=== PATIENT | female | born 1990 | race Caucasian/White ===

== ENCOUNTER 2018-10-05 14:15 | Emergency (ER) | payer BC ==
[2018-10-05] MEDS ORDERED: NA CHLORIDE 0.9% 1,000 ML ONE (15:08)
[2018-10-05 15:09] LABS: Absolute Lymphocytes (CBC) 1.1 K/uL (0.7-4.9); Absolute Monocytes 0.6 K/uL (0.1-1.3); Absolute Neutrophil 8.8 K/uL (1.8-8.0); Basophils % 0.3 % (0-1.3); Eosinophils % 0.3 % (0-4.4); Hematocrit 40.5 % (36.0-45.0); Lymphocytes % 10.6 % (15.3-44.8); MPV 7.5 fL (7.6-11.3); Monocytes % 5.4 % (3.3-12.3); RBC Red Blood Cell Count 4.45 M/uL (3.86-4.86)
[2018-10-05 15:13] LABS: Protime INR 1.13
--- NOTE | 2018-10-05 15:31 | RAD REPORT ---
EXAM DESCRIPTION: RAD - Chest Single View - 10/05/2018 3:20 pm CLINICAL HISTORY: MALAISE Chest pain. COMPARISON: No comparisons FINDINGS: Portable technique limits examination quality. The lungs are grossly clear. The heart is normal in size. No displaced fractures. IMPRESSION: No acute intrathoracic process suspected.
[2018-10-05 16:01] LABS: ALT/SGPT 16 U/L (12-78); AST/SGOT 14 U/L (15-37); Albumin 4.7 g/dL (3.4-5.0); Alkaline Phosphatase 47 U/L (45-117); BUN Blood Urea Nitrogen 11 mg/dL (7-18); Bicarbonate 23 mmol/L (21-32); Bilirubin Direct 0.2 mg/dL (0-0.2); Bilirubin Total 0.5 mg/dL (0.2-1.0); Glucose Level 117 mg/dL (74-106); Magnesium 1.7 mg/dL (1.8-2.4); NT PRO-BNP 10 pg/mL (<125); Potassium 3.5 mmol/L (3.5-5.1); Protein, Total 7.9 g/dL (6.4-8.2); Sodium Level 143 mmol/L (136-145); Troponin (Emerg Dept Use Only) < 0.02 ng/mL (0.0-0.045)
[2018-10-05 16:16] LABS: Barbiturates NEGATIVE (NEGATIVE); Benzodiazepines NEGATIVE (NEGATIVE); Cocaine NEGATIVE (NEGATIVE); METHAMPHETAM NEGATIVE (NEGATIVE); Methadone NEGATIVE (NEGATIVE); Opiates NEGATIVE (NEGATIVE); Phencyclidine NEGATIVE (NEGATIVE); THC Cannibis NEGATIVE (NEGATIVE)
--- NOTE | 2018-10-05 16:32 | EKG ---
Test Date: 2018-10-05 Test Time: 14:27:13 Batch Analyst: TITUS MEASUREMENT RESULTS: Intervals: Rate: 89 KS: 148 QRSD: 94 QT: 380 QTc: 462 [place]: P: 65 KS: 148 QRS: 75 T: 51 INTERPRETIVE STATEMENTS: Normal sinus rhythm with a premature ventricular complex Abmormal ECG No previous ECG available for comparison Electronically Signed On 10-05-18 16:31:04 CDT by Eugene Esteves
--- NOTE | 2018-10-05 16:55 | EDPHYS ---
Physician Documentation [facility] Name: Mnoique Robles Age: 28 yrs Sex: Female : 1990 Arrival Date: 10/05/2018 Time: 14:16 Bed 8 Private MD: ED Physician Irvin Price HPI: 10/05 16:45 This 28 yrs old Female presents to ER via Ambulatory with complaints of gs Anxiety. 16:45 The patient presents with a history of heart racing. Context: The symptoms occur at gs rest. Onset: The symptoms/episode began/occurred suddenly. Duration: The patient or guardian reports a single episode. Modifying factors: The symptoms are aggravated by nothing. The symptoms are alleviated by nothing. Associated signs and symptoms: Pertinent positives: SOB. Severity of symptoms: At their worst the symptoms were severe in the emergency department the symptoms are unchanged. The patient has experienced a previous episode. 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 - Social history:: Smoking status: Patient/guardian denies using tobacco. - Ebola Screening: : Patient negative for fever greater than or equal to 101.5 degrees Fahrenheit, and additional compatible Ebola Virus Disease symptoms Patient denies exposure to infectious person Patient denies travel to an Ebola-affected area in the 21 days before illness onset No symptoms or risks identified at this time. ROS: 16:45 All other systems are negative. gs Exam: 16:45 Head/Face: Normocephalic, atraumatic. Eyes: Pupils equal round and reactive to light, gs extra-ocular motions intact. Lids and lashes normal. Conjunctiva and sclera are non-icteric and not injected. Cornea within normal limits. Periorbital areas with no swelling, redness, or edema. ENT: Nares patent. No nasal discharge, no septal abnormalities noted. Tympanic membranes are normal and external auditory canals are clear. Oropharynx with no redness, swelling, or masses, exudates, or evidence of obstruction, uvula midline. Mucous membranes moist. Neck: Trachea midline, no thyromegaly or masses palpated, and no cervical lymphadenopathy. Supple, full range of motion without nuchal rigidity, or vertebral point tenderness. No Meningismus. Chest/axilla: Normal chest wall appearance and motion. Nontender with no deformity. No lesions are appreciated. Abdomen/GI: Soft, non-tender, with normal bowel sounds. No distension or tympany. No guarding or rebound. No evidence of tenderness throughout. Back: No spinal tenderness. No costovertebral tenderness. Full range of motion. Skin: Warm, dry with normal turgor. Normal color with no rashes, no lesions, and no evidence of cellulitis. MS/ Extremity: Pulses equal, no cyanosis. Neurovascular intact. Full, normal range of motion. Neuro: Awake and alert, GCS 15, oriented to person, place, time, and situation. Cranial nerves II-XII grossly intact. Motor strength 5/5 in all extremities. Sensory grossly intact. Cerebellar exam normal. Normal gait. 16:45 Constitutional: The patient appears alert, awake, uncomfortable. 16:45 Cardiovascular: Rate: tachycardic, Rhythm: regular, Pulses: no pulse deficits are appreciated. 16:45 ECG was reviewed by the Attending Physician. 16:45 Respiratory: mild respiratory distress is noted, Respirations: tachypnea, Breath sounds: are clear throughout. Vital Signs: 14:19 BP 144 / 90; Pulse 100; Resp 39 S; Temp 97.2; Pulse Ox 100% ; sg 15:18 BP 116 / 77; Pulse 81; Resp 18; Pulse Ox 100% on R/A; hj 16:54 BP 114 / 82; Pulse 83; Resp 18; Pulse Ox 100% on R/A; hj 17:08 BP 123 / 84; Pulse 82; Resp 18; Pulse Ox 100% on R/A; hj MDM: 14:40 Patient medically screened. gs 16:45 Differential diagnosis: arrythmia, dehydration, stress disorder. Differential gs diagnosis: HYPERTHYROID,DRUG EFFECT. Data reviewed: vital signs, nurses notes. Counseling: I had a detailed discussion with the patient and/or guardian regarding: the historical points, exam findings, and any diagnostic results supporting the discharge/admit diagnosis, lab results, the need for outpatient follow up. Response to treatment: the patient's symptoms have markedly improved after treatment, the patient's condition has returned to base line. 10/05 14:45 Order name: Basic Metabolic Panel 10/05 14:45 Order name: CBC with Diff 10/05 14:45 Order name: LFT's 10/05 14:45 Order name: Magnesium 10/05 14:45 Order name: NT PRO-BNP; Complete Time: 16:27 10/05 14:45 Order name: PT-INR; Complete Time: 15:34 10/05 14:45 Order name: Troponin (emerg Dept Use Only); Complete Time: 16:27 10/05 14:45 Order name: Urine Drug Screen; Complete Time: 16:27 10/05 14:45 Order name: Urine Microscopic Only 10/05 14:45 Order name: TSH; Complete Time: 16:27 10/05 14:45 Order name: D-Dimer; Complete Time: 15:34 10/05 14:45 Order name: Basic Metabolic Panel; Complete Time: 16:27 EDPA 10/05 14:45 Order name: CBC with Automated Diff; Complete Time: 15:34 EDPA 10/05 14:45 Order name: XRAY Chest (1 view); Complete Time: 15:34 10/05 14:45 Order name: EKG; Complete Time: 14:46 10/05 14:45 Order name: Cardiac monitoring; Complete Time: 14:46 10/05 14:45 Order name: EKG - Nurse/Tech; Complete Time: 14:46 10/05 14:45 Order name: IV Saline Lock; Complete Time: 14:57 10/05 14:45 Order name: Labs collected and sent; Complete Time: 14:57 10/05 14:45 Order name: O2 Per Protocol; Complete Time: 14:47 10/05 14:45 Order name: O2 Sat Monitoring; Complete Time: 14:47 10/05 14:45 Order name: Urine Test (obtain specimen); Complete Time: 15:50 10/05 14:45 Order name: Urine Dipstick-Ancillary (obtain specimen); Complete Time: 15:50 10/05 14:45 Order name: Liver (Hepatic) Function; Complete Time: 16:27 EDPA 10/05 14:45 Order name: Magnesium; Complete Time: 16:27 EDPA 10/05 15:58 Order name: Urine Dipstick--Ancillary (enter results) eb 10/05 15:58 Order name: Urine --Ancillary (enter results) eb EC:45 Rate is 89 beats/min. Rhythm is regular. DC interval is normal. QRS interval is normal. gs T waves are Normal. No ST changes noted. Clinical impression: Normal ECG. Interpreted by me. Administered Medications: 14:55 Drug: NS 0.9% 1000 ml Route: IV; Rate: 125 ml/hr; Site: right antecubital; hj 16:55 Follow up: IV Status: Infusion continued hj 17:11 Follow up: IV Status: Order to discontinue infusion hj Disposition: 10/05/18 16:54 Discharged to Home. Impression: Hyperventilation. - Condition is Stable. - Discharge Instructions: Hyperventilation. - Work release form, Medication Reconciliation Form, Thank You Letter, Antibiotic Education, Prescription Opioid Use form. - Follow up: Emergency Department; When: 2 - 3 days; Reason: Re-evaluation by your physician. - Problem is new. - Symptoms are resolved. Signatures: Dispatcher [employer] [facility] Torin Perea RN RN Inocencio Tyler RN RN Irvin Price MD MD Corrections: (The following items were deleted from the chart) 17:14 16:54 10/05/2018 16:54 Discharged to Home. Impression: Hyperventilation. Condition is hj Stable. Forms are Medication Reconciliation Form, Thank You Letter, Antibiotic Education, Prescription Opioid Use. Follow up: Emergency Department; When: 2 - 3 days; Reason: Re-evaluation by your physician. Problem is new. Symptoms are resolved. gs
--- NOTE | 2018-10-05 16:55 | ER ---
Nurse's Notes [facility] Name: Monique Robles Age: 28 yrs Sex: Female : 1990 Arrival Date: 10/05/2018 Time: 14:16 Bed 8 Private MD: Diagnosis: Hyperventilation Presentation: 10/05 14:20 Presenting complaint: Patient states: I was sitting at my desk, when my hands started sg cramping and my right side of my face was numb, my breathing was ok i was not short of breath, but then i got chest pressure and just not feeling normal. the numbness started before i got here around 130 pm. Transition of care: patient was not received from another setting of care. Onset of symptoms was October 05, 2018. Risk Assessment: Do you want to hurt yourself or someone else? Patient reports no desire to harm self or others. Initial Sepsis Screen: Does the patient meet any 2 criteria? RR > 20 per min. HR > 90 bpm. Does the patient have a suspected source of infection? No. Patient's initial sepsis screen is negative. Care prior to arrival: None. 14:20 Method Of Arrival: Ambulatory sg 14:20 Acuity: CEE 3 sg Triage Assessment: 14:23 General: Appears in no apparent distress. uncomfortable, Behavior is cooperative, hj appropriate for age, anxious. Pain: Complains of pain in chest. 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 - Social history:: Smoking status: Patient/guardian denies using tobacco. - Ebola Screening: : Patient negative for fever greater than or equal to 101.5 degrees Fahrenheit, and additional compatible Ebola Virus Disease symptoms Patient denies exposure to infectious person Patient denies travel to an Ebola-affected area in the 21 days before illness onset No symptoms or risks identified at this time. Screenin:23 Abuse screen: Denies threats or abuse. Denies injuries from another. Nutritional hj screening: No deficits noted. Tuberculosis screening: No symptoms or risk factors identified. Fall Risk None identified. Assessment: 14:34 General: Appears in no apparent distress. uncomfortable, Behavior is calm, cooperative, hj appropriate for age. Pain: Complains of pain in chest. Neuro: Level of Consciousness is awake, alert, obeys commands, Oriented to person, place, time, situation. Cardiovascular: Capillary refill < 3 seconds Patient's skin is warm and dry. Respiratory: Airway is patent Respiratory effort is even, unlabored, Respiratory pattern is regular. GI: No signs and/or symptoms were reported involving the gastrointestinal system. : No signs and/or symptoms were reported regarding the genitourinary system. EENT: No signs and/or symptoms were reported regarding the EENT system. Derm: No signs and/or symptoms reported regarding the dermatologic system. Musculoskeletal: No signs and/or symptoms reported regarding the musculoskeletal system. 15:17 Reassessment: awaiting for results and POC;. hj 16:54 Reassessment: awaiting provider to talk to pt for POC:. hj Vital Signs: 14:19 BP 144 / 90; Pulse 100; Resp 39 S; Temp 97.2; Pulse Ox 100% ; sg 15:18 BP 116 / 77; Pulse 81; Resp 18; Pulse Ox 100% on R/A; hj 16:54 BP 114 / 82; Pulse 83; Resp 18; Pulse Ox 100% on R/A; hj 17:08 BP 123 / 84; Pulse 82; Resp 18; Pulse Ox 100% on R/A; hj ED Course: 14:16 Patient arrived in ED. mr 14:17 Inocencio Tyler, RN is Primary Nurse. hj 14:19 Arm band placed on. sg 14:21 Triage completed. sg 14:23 Patient has correct armband on for positive identification. Placed in gown. Bed in low hj position. Call light in reach. Side rails up X 1. Adult w/ patient. 14:28 Irvin Price MD is Attending Physician. gs 14:29 EKG done, by wastewater technician. reviewed by Irvin Price MD. 3 14:55 Initial lab(s) drawn, by wi, sent to lab. Inserted saline lock: 22 gauge in right hj antecubital area, using aseptic technique. Blood collected. 15:17 XRAY Chest (1 view) In Process Unspecified. EDMS 17:10 No provider procedures requiring assistance completed. IV discontinued, intact, hj bleeding controlled, No redness/swelling at site. Pressure dressing applied. Administered Medications: 14:55 Drug: NS 0.9% 1000 ml Route: IV; Rate: 125 ml/hr; Site: right antecubital; hj 16:55 Follow up: IV Status: Infusion continued hj 17:11 Follow up: IV Status: Order to discontinue infusion hj Outcome: 16:54 Discharge ordered by . 17:10 Discharged to home ambulatory, with family. 17:10 Condition: stable 17:10 Discharge instructions given to patient, family, Instructed on discharge instructions, follow up and referral plans. Demonstrated understanding of instructions, follow-up care. 17:14 Patient left the ED. Signatures: Dispatcher [employer] [facility] Torin Perea, ABNER LEVINE Alina Fisher Henry, RN RN hj Starr, Gregory, MD MD gs Montes, Shakira 3
[2018-10-05 17:41] LABS: Urine Bacteria 20-50 /HPF (<20); Urine Culture Reflex Order REFLEXED; Urine RBC <5 /HPF (NONE SEEN)
[2018-10-05 17:44] LABS: Urine Blood NEGATIVE (NEG); Urine Glucose NEGATIVE (NEG); Urine Protein 2+ (NEG); Urine Specific Gravity 1.015 (1.005-1.030); Urine pH 8.5 (5.0-7.0)
== END 2018-10-05 17:14 | disposition home or self-care (01) ==
LOC: ER 14:15
DX: R06.4 Hyperventilation (principal); Z88.1 Allergy status to other antibiotic agents; Z88.8 Allergy status to other drugs, medicaments and biological substances
CPT/HCPCS: 36415; 71045; 80048; 80076; 80307; 81003; 81015; 81025; 83735; 83880; 84443; 84484; 85025; 85379; 85610; 87086; 87088; 93005; 96360; 96361; 99284; J7030

== ENCOUNTER 2018-10-15 11:01 | Emergency (ER) | payer BC ==
--- NOTE | 2018-10-15 12:18 | EDPHYS ---
Physician Documentation [facility] Name: Moinque Robles Age: 28 yrs Sex: Female : 1990 Arrival Date: 10/15/2018 Time: 11:03 Bed 16 Private MD: ED Physician Wild Taylor HPI: 10/15 11:35 This 28 yrs old Female presents to ER via Ambulatory with complaints of cp Foreign body In Vagina - Tampon. 11:35 The patient presents with retained tampon. Onset: The symptoms/episode began/occurred 2 cp day(s) ago. Associated signs and symptoms: Pertinent negatives: dysuria, fever, abdominal pain. 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 - Social history:: Smoking status: Patient/guardian denies using tobacco. - Ebola Screening: : Patient negative for fever greater than or equal to 101.5 degrees Fahrenheit, and additional compatible Ebola Virus Disease symptoms Patient denies exposure to infectious person Patient denies travel to an Ebola-affected area in the 21 days before illness onset No symptoms or risks identified at this time. ROS: 11:40 Abdomen/GI: Negative for abdominal pain, nausea, vomiting, and diarrhea. cp 11:40 Constitutional: Negative for body aches, chills, fever, poor PO intake. cp 11:40 : Negative for urinary symptoms, vaginal discharge. 11:40 All other systems are negative. Vital Signs: 11:31 BP 99 / 76; Pulse 74; Resp 16; Pulse Ox 98% on R/A; Weight 74.84 kg; Height 5 ft. 5 in. iw (165.10 cm); Pain 0/10; 12:23 Temp 98.6(O); aj 11:31 Body Mass Index 27.46 (74.84 kg, 165.10 cm) iw MDM: 11:21 Patient medically screened. cp 10/15 11:35 Order name: Pelvic Exam Setup; Complete Time: 12:08 cp Administered Medications: No medications were administered Disposition: 10/15/18 12:17 Discharged to Home. Impression: Foreign body in vulva and vagina - tampon. - Condition is Stable. - Discharge Instructions: Vaginal Foreign Body. - Prescriptions for Doxycycline Hyclate 100 mg Oral Tablet - take 1 tablet by ORAL route every 12 hours for 10 days; 20 tablet. - Medication Reconciliation Form, Thank You Letter, Antibiotic Education, Prescription Opioid Use form. - Follow up: Private Physician; When: 1 - 2 days; Reason: Worsening of condition. - Problem is new. - Symptoms have improved. Signatures: Lynette Sanchez RN RN Areli Velasquez RN RN Jarett Clarke PA PA cp Corrections: (The following items were deleted from the chart) 12:25 12:17 10/15/2018 12:17 Discharged to Home. Impression: Foreign body in vulva and vagina aj - tampon. Condition is Stable. Forms are Medication Reconciliation Form, Thank You Letter, Antibiotic Education, Prescription Opioid Use. Follow up: Private Physician; When: 1 - 2 days; Reason: Worsening of condition. Problem is new. Symptoms have improved. cp
--- NOTE | 2018-10-15 12:18 | ER ---
Nurse's Notes [facility] Name: Monique Robles Age: 28 yrs Sex: Female : 1990 Arrival Date: 10/15/2018 Time: 11:03 Bed 16 Private MD: Diagnosis: Foreign body in vulva and vagina-tampon Presentation: 10/15 11:30 Presenting complaint: Patient states: feels her tampon stuck inside her vagina but iw can't grab it to pull it out, since Tuesday, denies pain or discharge, states there is an odor. Transition of care: patient was not received from another setting of care. Onset of symptoms was October 13, 2018. Risk Assessment: Do you want to hurt yourself or someone else? Patient reports no desire to harm self or others. Initial Sepsis Screen: Does the patient meet any 2 criteria? No. Patient's initial sepsis screen is negative. Does the patient have a suspected source of infection? No. Patient's initial sepsis screen is negative. Care prior to arrival: None. 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 - Social history:: Smoking status: Patient/guardian denies using tobacco. - Ebola Screening: : Patient negative for fever greater than or equal to 101.5 degrees Fahrenheit, and additional compatible Ebola Virus Disease symptoms Patient denies exposure to infectious person Patient denies travel to an Ebola-affected area in the 21 days before illness onset No symptoms or risks identified at this time. Screenin:07 Abuse screen: Denies threats or abuse. Denies injuries from another. Nutritional aj screening: No deficits noted. Tuberculosis screening: No symptoms or risk factors identified. Fall Risk None identified. Assessment: 12:06 General: Appears in no apparent distress. comfortable, Behavior is calm, cooperative, aj appropriate for age. Pain: Denies pain. Neuro: Level of Consciousness is awake, alert, obeys commands, Oriented to person, place, time, situation, Appropriate for age. Respiratory: Airway is patent Respiratory effort is even, unlabored, Respiratory pattern is regular, symmetrical. : Reports tampon stuck in vagina for 2 days. Derm: Skin is intact, is healthy with good turgor, Skin is pink, warm \T\ dry. normal. Vital Signs: 11:31 BP 99 / 76; Pulse 74; Resp 16; Pulse Ox 98% on R/A; Weight 74.84 kg; Height 5 ft. 5 in. iw (165.10 cm); Pain 0/10; 12:23 Temp 98.6(O); aj 11:31 Body Mass Index 27.46 (74.84 kg, 165.10 cm) iw ED Course: 11:03 Patient arrived in ED. as 11:09 Jarett Champagne PA is PHCP. cp 11:09 Wild Taylor MD is Attending Physician. cp 11:31 Triage completed. iw 11:33 Arm band placed on. iw 12:06 Lynette Sanchez, RN is Primary Nurse. aj 12:07 Assist provider with pelvic exam: Set up pelvic tray. Performed by Jarett deluna Patient tolerated well. tampon removed. 12:23 Patient did not have IV access during this emergency room visit. aj 12:25 Patient has correct armband on for positive identification. aj Administered Medications: No medications were administered Outcome: 12:17 Discharge ordered by MD. cp 12:23 Discharged to home ambulatory. aj 12:23 Condition: good 12:23 Discharge instructions given to patient, Instructed on discharge instructions, follow up and referral plans. medication usage, Demonstrated understanding of instructions, follow-up care, medications, Prescriptions given X 1. 12:25 Patient left the ED. aj Signatures: Lynette Sanchez, RN RN Hayley Barbour Irene, RN RN iw Page, Corey, PA PA cp
== END 2018-10-15 12:25 | disposition home or self-care (01) ==
LOC: ER 11:01
DX: T19.2XXA Foreign body in vulva and vagina, initial encounter (principal); Z88.1 Allergy status to other antibiotic agents

== ENCOUNTER 2020-01-17 09:00 | Emergency (ER) | payer BC, SELFPAY ==
--- NOTE | 2020-01-17 09:26 | EDPHYS ---
Physician Documentation [facility] Name: Monique Robles Age: 29 yrs Sex: Female : 1990 Arrival Date: 01/17/2020 Time: 09:02 Bed 18 Private MD: ED Physician Brett Anna HPI: 01/16 09:21 This 29 yrs old Female presents to ER via Ambulatory with complaints of jr8 Vaginal Problem. 09:21 Onset: The symptoms/episode began/occurred acutely, last night. Modifying factors: The jr8 symptoms are alleviated by nothing, the symptoms are aggravated by nothing. Associated signs and symptoms: The patient has no apparent associated signs or symptoms. Severity of symptoms: At their worst the symptoms were very mild, in the emergency department the symptoms are unchanged. The patient has not experienced similar symptoms in the past. The patient has not recently seen a physician. Patient stated that she is on her menstrual cycle. Was drunk last night and could not remember if she had a tampon inside her or not. Came to ED for evaluation as she could not feel it . 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 - Social history:: Smoking status: Patient denies any tobacco usage or history of. Patient uses alcohol, only on a social basis. ROS: 09:21 Eyes: Negative for injury, pain, redness, and discharge, ENT: Negative for injury, jr8 pain, and discharge, Neck: Negative for injury, pain, and swelling, Cardiovascular: Negative for chest pain, palpitations, and edema, Respiratory: Negative for shortness of breath, cough, wheezing, and pleuritic chest pain, Abdomen/GI: Negative for abdominal pain, nausea, vomiting, diarrhea, and constipation, Back: Negative for injury and pain, MS/Extremity: Negative for injury and deformity, Skin: Negative for injury, rash, and discoloration, Neuro: Negative for headache, weakness, numbness, tingling, and seizure. Exam: 09:21 Constitutional: This is a well developed, well nourished patient who is awake, alert, jr8 and in no acute distress. Cardiovascular: Regular rate and rhythm with a normal S1 and S2. No gallops, murmurs, or rubs. Normal PMI, no JVD. No pulse deficits. Respiratory: Lungs have equal breath sounds bilaterally, clear to auscultation and percussion. No rales, rhonchi or wheezes noted. No increased work of breathing, no retractions or nasal flaring. Abdomen/GI: Soft, non-tender, with normal bowel sounds. No distension or tympany. No guarding or rebound. No evidence of tenderness throughout. Back: No spinal tenderness. No costovertebral tenderness. Full range of motion. Skin: Warm, dry with normal turgor. Normal color with no rashes, no lesions, and no evidence of cellulitis. MS/ Extremity: Pulses equal, no cyanosis. Neurovascular intact. Full, normal range of motion. Neuro: Awake and alert, GCS 15, oriented to person, place, time, and situation. Cranial nerves II-XII grossly intact. Motor strength 5/5 in all extremities. Sensory grossly intact. Cerebellar exam normal. Normal gait. 09:21 : Pelvic Exam: External exam: is normal, no appreciated Bartholin's cyst, no erythema, not excoriated, no evidence of foreign body, no lesions, no ulcerations, no warts seen, Speculum exam: no bleeding is noted, no cervicitis, Tampon located at the 2 o'clock position of vaginal canal , a female returns clerk was present for the exam. Vital Signs: 09:11 BP 109 / 72; Pulse 20; Resp 80; Temp 98.5; Pulse Ox 100% on R/A; Pain 0/10; jr10 Procedures: 09:21 Foreign Body Removal: a tampon, from the vagina, by ring forceps. The patient tolerated jr8 the removal well, successful removal of FB . MDM: 09:06 Patient medically screened. jr8 09:21 Data reviewed: vital signs, nurses notes, and as a result, I will discharge patient. jr8 Data interpreted: Pulse oximetry: on room air is 100 %. Interpretation: normal. Counseling: I had a detailed discussion with the patient and/or guardian regarding: the historical points, exam findings, and any diagnostic results supporting the discharge/admit diagnosis, the need for outpatient follow up, a family practitioner, an OB/Gyne specialist, to return to the emergency department if symptoms worsen or persist or if there are any questions or concerns that arise at home. Administered Medications: No medications were administered Disposition: 17:37 Co-signature as Attending Physician, Brett Anna MD I agree with the assessment and kdr plan of care. Disposition: 01/17/20 09:25 Discharged to Home. Impression: Foreign body in vulva and vagina. - Condition is Stable. - Discharge Instructions: Vaginal Foreign Body. - Medication Reconciliation Form, Thank You Letter, Antibiotic Education, Prescription Opioid Use form. - Follow up: Private Physician; When: As needed; Reason: Recheck today's complaints, Continuance of care, Re-evaluation by your physician. - Problem is new. - Symptoms are resolved. Signatures: Brett Anna MD MD kdr Hakeem Morrow PA PA jr8 Tova Fisher RN RN jr10 Corrections: (The following items were deleted from the chart) 09:35 09:25 01/17/2020 09:25 Discharged to Home. Impression: Foreign body in vulva and jr10 vagina. Condition is Stable. Forms are Medication Reconciliation Form, Thank You Letter, Antibiotic Education, Prescription Opioid Use. Follow up: Private Physician; When: As needed; Reason: Recheck today's complaints, Continuance of care, Re-evaluation by your physician. Problem is new. Symptoms are resolved. jr8
--- NOTE | 2020-01-17 09:26 | ER ---
Nurse's Notes [facility] Name: Monique Robles Age: 29 yrs Sex: Female : 1990 Arrival Date: 01/17/2020 Time: 09:02 Bed 18 Private MD: Diagnosis: Foreign body in vulva and vagina Presentation: 01/16 09:11 Chief complaint: Patient states: "I got really drunk last night and I'm not sure if I jr10 took my tampon out or not, but I was able to put another one in this morning so I don't know I just wanted to check." denies any abd pain/cramping. Coronavirus screen: Patient denies a cough. Patient denies shortness of breath or difficulty breathing. Patient denies measured and/or subjective temperature greater than 100.4F prior to today's visit. Patient denies travel on a cruise ship or to a country the [facility] currently lists as an affected area. Patient denies contact with known and/or suspected case of COVID-19. Ebola Screen: No symptoms or risks identified at this time. Initial Sepsis Screen: Does the patient meet any 2 criteria? No. Patient's initial sepsis screen is negative. Does the patient have a suspected source of infection? No. Patient's initial sepsis screen is negative. Risk Assessment: Do you want to hurt yourself or someone else? Patient reports no desire to harm self or others. Onset of symptoms. 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 - Social history:: Smoking status: Patient denies any tobacco usage or history of. Patient uses alcohol, only on a social basis. Screenin:17 Abuse screen: Denies threats or abuse. Denies injuries from another. Nutritional jr10 screening: No deficits noted. Tuberculosis screening: No symptoms or risk factors identified. Fall Risk None identified. Assessment: 09:16 Reassessment: See triage note. General: Appears in no apparent distress. Behavior is jr10 calm, cooperative. Pain: Denies pain. GI: No deficits noted. : Reports possible retained tampon, denies pain; currently on menses. Vital Signs: 09:11 BP 109 / 72; Pulse 20; Resp 80; Temp 98.5; Pulse Ox 100% on R/A; Pain 0/10; jr10 ED Course: 09:02 Patient arrived in ED. as 09:06 Hakeem Morrow PA is PHCP. jr8 09:06 Brett Anna MD is Attending Physician. jr8 09:08 Tova Fisher, ABNER is Primary Nurse. jr10 09:13 Triage completed. jr10 09:16 Arm band placed on. jr10 09:18 Patient did not have IV access during this emergency room visit. jr10 09:19 Patient has correct armband on for positive identification. Placed in gown. Bed in low jr10 position. Call light in reach. Side rails up X2. 09:35 No provider procedures requiring assistance completed. jr10 Administered Medications: No medications were administered Outcome: 09:25 Discharge ordered by . jr8 09:35 Discharged to home ambulatory. jr10 09:35 Condition: good 09:35 Discharge instructions given to patient, Instructed on discharge instructions, follow up and referral plans. Demonstrated understanding of instructions. 09:35 Patient left the ED. jr10 Signatures: Hayley Bains as Hakeem Morrow PA PA jr8 Tova Fisher, RN RN jr10
[2020-01-17 09:42] VITALS: BP 109/72; TEMP 98.5; O2SAT 100
== END 2020-01-17 09:35 | disposition home or self-care (01) ==
LOC: ER 09:00
DX: T19.2XXA Foreign body in vulva and vagina, initial encounter (principal); Z88.1 Allergy status to other antibiotic agents; Z88.6 Allergy status to analgesic agent
CPT/HCPCS: 99281

== ENCOUNTER 2020-01-20 18:46 | Emergency (ER) | payer SELFPAY ==
--- NOTE | 2020-01-20 20:02 | ER ---
Nurse's Notes [facility] Name: Monique Robles Age: 29 yrs Sex: Female : 1990 Arrival Date: 01/20/2020 Time: 18:50 Bed 19 Private MD: Diagnosis: Foreign body in vulva and vagina-tampon Presentation: 01/19 18:57 Chief complaint: Patient states: "I think I have a tampon stuck in my vagina. I'm not ss sure, but I want to get check.". Coronavirus screen: Client denies travel out of the [place] in the last 14 days. At this time, the client does not indicate any symptoms associated with coronavirus-19. Ebola Screen: Patient denies exposure to infectious person. Patient denies travel to an Ebola-affected area in the 21 days before illness onset. Initial Sepsis Screen: Does the patient meet any 2 criteria? No. Patient's initial sepsis screen is negative. Does the patient have a suspected source of infection? No. Patient's initial sepsis screen is negative. Risk Assessment: Do you want to hurt yourself or someone else? Patient reports no desire to harm self or others. Onset of symptoms was January 19, 2020. 18:57 Method Of Arrival: Ambulatory ss 18:57 Acuity: CEE 4 ss Historical: - Allergies: 18:59 Bactrim; ss 18:59 Biaxin; ss - PSHx: 18:59 Tonsillectomy; Adenoids; Appendectomy; ss - Immunization history:: Adult Immunizations up to date. - Social history:: Smoking status: Patient denies any tobacco usage or history of. Screenin:40 Abuse screen: Denies threats or abuse. Nutritional screening: No deficits noted. bb Tuberculosis screening: No symptoms or risk factors identified. Fall Risk None identified. Assessment: 19:40 General: Appears slender, well groomed, Behavior is calm, cooperative. Pain: Denies bb pain. Neuro: Level of Consciousness is awake, alert, obeys commands, Oriented to person, place, time, situation. Cardiovascular: No deficits noted. Respiratory: Airway is patent Respiratory effort is even, unlabored, Respiratory pattern is regular. GI: Abdomen is non-distended, Reports cramping. : Reports she thinks she has a tampon stuck in her vagina since yesterday. Derm: Skin is pink, warm \\T\\ dry. Musculoskeletal: Circulation, motion, and sensation intact. Vital Signs: 18:59 BP 123 / 90; Pulse 88; Resp 16; Temp 98.(O); Pulse Ox 99% on R/A; Weight 72.57 kg; Height 5 ft. 5 in. (165.10 cm); 18:59 Body Mass Index 26.63 (72.57 kg, 165.10 cm) ED Course: 18:50 Patient arrived in ED. bp1 18:58 Triage completed. ss 18:59 Arm band placed on right wrist. ss 19:38 Jarett Champagne PA is PHCP. cp 19:38 Boyd Landers MD is Attending Physician. cp 19:40 Patient has correct armband on for positive identification. bb 19:40 Patient did not have IV access during this emergency room visit. bb 19:53 Assist provider with pelvic exam: Set up pelvic tray. Performed by Jarett yarbrough Patient tolerated well. tampon removed. Administered Medications: No medications were administered Outcome: 20:02 Discharge ordered by MD. cp 20:10 Discharged to home ambulatory. 20:10 Condition: good 20:10 Discharge instructions given to patient, Instructed on discharge instructions, follow up and referral plans. Demonstrated understanding of instructions, follow-up care. 20:10 Patient left the ED. Signatures: Carmina Benson, RN RN Rabia Swanson RN RN ss Page, Corey, PA PA cp Harris, Amy RN ABNER Angie Mckeon bp1
--- NOTE | 2020-01-20 20:03 | EDPHYS ---
Physician Documentation [facility] Name: Monique Robles Age: 29 yrs Sex: Female : 1990 Arrival Date: 01/20/2020 Time: 18:50 Bed 19 Private MD: ED Physician Boyd Landers HPI: 01/19 19:54 This 29 yrs old Female presents to ER via Ambulatory with complaints of cp Foreign body In Vagina. 19:54 The patient presents with vaginal foreign body. Onset: The symptoms/episode cp began/occurred yesterday. Associated signs and symptoms: Pertinent positives: vaginal bleeding, Pertinent negatives: fever. Patient reports placing tampon in vagina yesterday and unable to remove tampon. Historical: - Allergies: 18:59 Bactrim; ss 18:59 Biaxin; ss - PSHx: 18:59 Tonsillectomy; Adenoids; Appendectomy; ss - Immunization history:: Adult Immunizations up to date. - Social history:: Smoking status: Patient denies any tobacco usage or history of. ROS: 19:55 Constitutional: Negative for fever. cp 19:55 Abdomen/GI: Positive for abdominal cramps, Negative for abdominal pain, nausea, vomiting, and diarrhea. 19:55 : Positive for vaginal bleeding, vaginal foreign body, Negative for urinary symptoms, pelvic pain. 19:55 All other systems are negative. Exam: 19:56 Head/Face: Normocephalic, atraumatic. cp 19:56 Constitutional: The patient appears in no acute distress, alert, awake, comfortable, non-toxic, well developed, well nourished. 19:56 Cardiovascular: Rate: normal. 19:56 Respiratory: the patient does not display signs of respiratory distress, Respirations: normal, no use of accessory muscles, no retractions, labored breathing, is not present. 19:56 Abdomen/GI: Inspection: abdomen appears normal, Palpation: abdomen is soft and non-tender, in all quadrants. 19:56 : Pelvic Exam: Speculum exam: scant bleeding, os that is closed, noted tampon above cervix, the nurse was present for the exam. 19:56 Skin: no rash present. Vital Signs: 18:59 BP 123 / 90; Pulse 88; Resp 16; Temp 98.(O); Pulse Ox 99% on R/A; Weight 72.57 kg; Height 5 ft. 5 in. (165.10 cm); 18:59 Body Mass Index 26.63 (72.57 kg, 165.10 cm) Procedures: 19:58 Foreign Body Removal: a tampon, from the vagina, by ring forceps. The patient tolerated cp the removal well. MDM: 19:39 Patient medically screened. 20:00 Data reviewed: vital signs, nurses notes, and as a result, I will discharge patient. cp Response to treatment: the patient's symptoms have resolved after treatment, foreign body removed, and as a result, I will discharge patient. 01/19 19:41 Order name: Pelvic Exam Setup; Complete Time: 19:44 cp Administered Medications: No medications were administered Disposition: 20:05 Chart complete. 01/20 04:27 Co-signature as Attending Physician, Boyd Lanedrs MD I agree with the assessment and [facility] plan of care. Disposition: 01/20/20 20:02 Discharged to Home. Impression: Foreign body in vulva and vagina - tampon. - Condition is Stable. - Discharge Instructions: Vaginal Foreign Body. - Medication Reconciliation Form, Thank You Letter, Antibiotic Education, Prescription Opioid Use form. - Follow up: Private Physician; When: As needed; Reason: Recheck today's complaints. - Problem is new. - Symptoms are resolved. Signatures: Rabia Perez RN RN Jarett Champagne PA PA Boyd Landers MD MD tw Diane Esteves RN RN Corrections: (The following items were deleted from the chart) 01/19 20:10 20:02 01/20/2020 20:02 Discharged to Home. Impression: Foreign body in vulva and vagina ah - tampon. Condition is Stable. Forms are Medication Reconciliation Form, Thank You Letter, Antibiotic Education, Prescription Opioid Use. Follow up: Private Physician; When: As needed; Reason: Recheck today's complaints. Problem is new. Symptoms are resolved. cp
[2020-01-20 20:15] VITALS: BP 123/90; TEMP 98; O2SAT 99
== END 2020-01-20 20:10 | disposition home or self-care (01) ==
LOC: ER 18:46
DX: T19.2XXA Foreign body in vulva and vagina, initial encounter (principal); Z88.1 Allergy status to other antibiotic agents; Z88.6 Allergy status to analgesic agent
CPT/HCPCS: 99283

== ENCOUNTER 2020-02-20 13:08 | Emergency (ER) | payer SELFPAY ==
--- NOTE | 2020-02-20 13:38 | EDPHYS ---
Physician Documentation [facility] Name: Monique Robles Age: 29 yrs Sex: Female : 1990 Arrival Date: 02/20/2020 Time: 13:11 Bed 15 Private MD: ED Physician Brett Anna HPI: 02/19 13:34 This 29 yrs old Female presents to ER via Ambulatory with complaints of jr8 Foreign body In Vagina. 13:34 Onset: The symptoms/episode began/occurred acutely, yesterday. Modifying factors: The jr8 symptoms are alleviated by nothing, the symptoms are aggravated by nothing. Associated signs and symptoms: The patient has no apparent associated signs or symptoms. Severity of symptoms: At their worst the symptoms were very mild, in the emergency department the symptoms are unchanged. The patient has not experienced similar symptoms in the past. The patient has not recently seen a physician. Patient stated that she got drunk last night and dose not remember if she took her tampon out or not . Historical: - Allergies: 13:19 Bactrim; ll1 13:19 Biaxin; ll1 - PSHx: 13:19 Tonsillectomy; Adenoids; Appendectomy; ll1 - Immunization history:: Flu vaccine is up to date. - Social history:: Smoking status: Patient denies any tobacco usage or history of. Patient uses alcohol, only on a social basis. Patient/guardian denies using street drugs. ROS: 13:34 Eyes: Negative for injury, pain, redness, and discharge, ENT: Negative for injury, jr8 pain, and discharge, Neck: Negative for injury, pain, and swelling, Cardiovascular: Negative for chest pain, palpitations, and edema, Respiratory: Negative for shortness of breath, cough, wheezing, and pleuritic chest pain, Abdomen/GI: Negative for abdominal pain, nausea, vomiting, diarrhea, and constipation, Back: Negative for injury and pain, MS/Extremity: Negative for injury and deformity, Skin: Negative for injury, rash, and discoloration, Neuro: Negative for headache, weakness, numbness, tingling, and seizure. Exam: 13:34 Cardiovascular: Regular rate and rhythm with a normal S1 and S2. No gallops, murmurs, jr8 or rubs. Normal PMI, no JVD. No pulse deficits. Respiratory: Lungs have equal breath sounds bilaterally, clear to auscultation and percussion. No rales, rhonchi or wheezes noted. No increased work of breathing, no retractions or nasal flaring. Abdomen/GI: Soft, non-tender, with normal bowel sounds. No distension or tympany. No guarding or rebound. No evidence of tenderness throughout. Back: No spinal tenderness. No costovertebral tenderness. Full range of motion. Skin: Warm, dry with normal turgor. Normal color with no rashes, no lesions, and no evidence of cellulitis. MS/ Extremity: Pulses equal, no cyanosis. Neurovascular intact. Full, normal range of motion. Neuro: Awake and alert, GCS 15, oriented to person, place, time, and situation. Cranial nerves II-XII grossly intact. Motor strength 5/5 in all extremities. Sensory grossly intact. Cerebellar exam normal. Normal gait. 13:34 : Pelvic Exam: External exam: is normal, Speculum exam: scant bleeding, no cervicitis, os that is closed, no tissue in cervix is seen, No FB noted, the nurse was present for the exam. Vital Signs: 13:17 BP 113 / 79; Pulse 94; Resp 16; Temp 98.4; Pulse Ox 100% ; Pain 0/10; ll1 [facility]: 13:[address] [facility] 13:34 Data reviewed: vital signs, nurses notes, and as a result, I will discharge patient. jr8 Data interpreted: Pulse oximetry: on room air is 100 %. Interpretation: normal. Counseling: I had a detailed discussion with the patient and/or guardian regarding: the historical points, exam findings, and any diagnostic results supporting the discharge/admit diagnosis, the need for outpatient follow up, a family practitioner, to return to the emergency department if symptoms worsen or persist or if there are any questions or concerns that arise at home. Administered Medications: No medications were administered Disposition: 17:01 Co-signature as Attending Physician, Brett Anna MD I agree with the assessment and kdr plan of care. Disposition: 02/20/20 13:38 Discharged to Home. Impression: Encounter for gynecological examination. - Condition is Stable. - Discharge Instructions: Vaginal Foreign Body. - Medication Reconciliation Form, Thank You Letter, Antibiotic Education, Prescription Opioid Use form. - Follow up: Private Physician; When: As needed; Reason: Recheck today's complaints, Continuance of care, Re-evaluation by your physician. - Problem is new. - Symptoms are resolved. Signatures: Brett Anna MD MD kdr Roszak, Josh, PA PA jr8 Quynh Gutiérrez RN RN ls4 Storm Swann RN RN ll1 Corrections: (The following items were deleted from the chart) 15:03 13:38 02/20/2020 13:38 Discharged to Home. Impression: Encounter for gynecological ls4 examination. Condition is Stable. Forms are Medication Reconciliation Form, Thank You Letter, Antibiotic Education, Prescription Opioid Use. Follow up: Private Physician; When: As needed; Reason: Recheck today's complaints, Continuance of care, Re-evaluation by your physician. Problem is new. Symptoms are resolved. jr8
--- NOTE | 2020-02-20 13:38 | ER ---
Nurse's Notes [facility] Name: Monique Robles Age: 29 yrs Sex: Female : 1990 Arrival Date: 02/20/2020 Time: 13:11 Bed 15 Private MD: Diagnosis: Encounter for gynecological examination Presentation: 02/19 13:17 Chief complaint: Patient states: Possibly lost a tampon vaginally on Tuesday, doesn't ll1 remember removing it. Slight foul vaginal odor, no pain or fever. Coronavirus screen: Client denies travel out of the [place] in the last 14 days. At this time, the client does not indicate any symptoms associated with coronavirus-19. Ebola Screen: Patient denies travel to an Ebola-affected area in the 21 days before illness onset. Initial Sepsis Screen: Does the patient meet any 2 criteria? No. Patient's initial sepsis screen is negative. Risk Assessment: Do you want to hurt yourself or someone else? Patient reports no desire to harm self or others. Onset of symptoms was February 18, 2020. 13:17 Method Of Arrival: Ambulatory ll1 13:17 Acuity: CEE 4 ll1 Triage Assessment: 13:24 General: Appears comfortable, Behavior is calm, cooperative. Pain: Denies pain. : ll1 Reports possible vaginal FB (tampon). Slight foul odor. Denies cramping pain. 13:25 Neuro: No deficits noted. Cardiovascular: No deficits noted. Respiratory: No deficits ll1 noted. Historical: - Allergies: 13:19 Bactrim; ll1 13:19 Biaxin; ll1 - PSHx: 13:19 Tonsillectomy; Adenoids; Appendectomy; ll1 - Immunization history:: Flu vaccine is up to date. - Social history:: Smoking status: Patient denies any tobacco usage or history of. Patient uses alcohol, only on a social basis. Patient/guardian denies using street drugs. Vital Signs: 13:17 BP 113 / 79; Pulse 94; Resp 16; Temp 98.4; Pulse Ox 100% ; Pain 0/10; ll1 ED Course: 13:11 Patient arrived in ED. mr 13:19 Triage completed. ll1 13:19 Arm band placed on. ll1 13:24 Hakeem Morrow PA is PHCP. jr8 13:24 Brett Anna MD is Attending Physician. jr8 14:02 Quynh Gutiérrez, RN is Primary Nurse. ls4 Administered Medications: No medications were administered Outcome: 13:38 Discharge ordered by . jr8 15:03 Patient left the ED. ls4 Signatures: Alina Fisher mr MaiaHakeem livingston PA PA jr8 Quynh Gutiérrez, RN RN ls4 Stomr Swann RN RN ll1
[2020-02-22 13:23] VITALS: BP 113/79; TEMP 98.4; O2SAT 100
== END 2020-02-20 15:03 | disposition home or self-care (01) ==
LOC: ER 13:08
DX: Z01.419 Encounter for gynecological examination (general) (routine) without abnormal findings (principal); Z88.1 Allergy status to other antibiotic agents
CPT/HCPCS: 99281